=== PATIENT | female | born 1985 | race Caucasian/White ===

== ENCOUNTER 2016-08-08 11:30 | Day surgery (SDC) | payer BC, OTHER ==
[~2016-08-08] VITALS: Ht 162.6 cm; Wt 56.0 kg
[~2016-08-08 11:30] MED LIST: FLUDROCORT PO; LUBI8CAP4 PO; TOPI50TA16 PO
[2016-08-08 12:03] VITALS: BP 108/64; PULSE 84; TEMP 36.9; O2SAT 96; Ht 162.6 cm; Wt 56.0 kg
[2016-08-08] MEDS ORDERED: BACITRACIN OINT 0.9 GM PKT ONE (12:59)
[2016-08-08] MEDS ORDERED: LIDOCAINE HCL 1% 20 ML VIAL ONE (13:00)
[2016-08-08] MEDS ORDERED: LACTATED RINGER'S 1000ML IV SCH (14:00)
--- NOTE | 2016-08-08 14:07 | Cardiology Procedure Brief Nt ---
Preliminary Cardiology Note Procedure Date Aug 08, 2016. 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 Aguillon Fiscal Assistant(s) none Estimated Blood Loss 5 cc Preliminary Findings Successful explantation Recommendations Monitor her very briefly and discharge Specimens Old loop recorder, return to [employer] Anesthesia local with no sedation Complication(s) None Disposition [facility]
[2016-08-08 14:15] VITALS: BP 112/61; PULSE 82; TEMP 37; O2SAT 100
--- NOTE | 2016-08-08 14:18 | Discharge Instructions ---
Discharge Instructions Admission Reason for Admission: Loop recorder battery depletion Discharge Discharge Diagnosis / Problem: Loop recorder end of service Discharge Goals Goal(s): Therapeutic intervention Activity Recommendations Activity Limitations: resume your previous activity . Instructions / Follow-Up Instructions / Follow-Up ACTIVITY RECOMMENDATIONS: * Do not raise affected arm over head for 2 weeks. SPECIAL CARE INSTRUCTIONS: * If bleeding occurs, apply direct pressure to area for 5 minutes. * Call your doctor if you have severe pain, fever, drainage or bleeding at site. * Keep dressing on and dry for 48 hours then remove. * Keep any scheduled doctor's appointment. FOLLOW UP VISIT: Dr. Aguillon, , 08/10/2016 10:00 AM Current Hospital Diet Patient's current hospital diet: Discharge Diet Recommended Diet: Regular Diet Procedures Procedures Performed: Loop recorder explantation Pending Studies Studies pending at discharge: no Medical Emergencies . Who to Call and When: Medical Emergencies: If at any time you feel your situation is an emergency, please call 911 immediately. . Non-Emergent Contact Non-Emergency issues call your: Primary Care Provider . . "Provider Documentation" section prepared by Anup Aguillon. VTE Core Measure Inpt VTE Proph given/why not?: Treatment not indicated
--- NOTE | 2016-08-08 14:36 | OPERATIVE REPORT ---
DATE OF OPERATION: 08/08/2016 PREOPERATIVE DIAGNOSIS: Loop recorder end of service. POSTOPERATIVE DIAGNOSIS: Same. PROCEDURE: Loop recorder removal. SURGEON: Anup Aguillon M.D. ANESTHESIA: Local without sedation. HISTORY OF PRESENT ILLNESS: This is a 30-year-old woman who had a history of syncope. On tilt testing she had what appeared to be orthostasis as well as a possible vagal episode. With uncertainty as to the cause of her syncope she had a loop recorder implanted on 11/14/2012. She has had several presyncopal episodes but no true syncope since recorder implantation. Her presyncopal episodes have shown sinus tachycardia and not bradycardia suggesting that her syncope was due to orthostasis. Her device has now reached end of service, there seems to be little utility in implanting another device and implant procedure with the new device is very different in a different location; therefore there is no advantage in implanting it at the same time. We are therefore going to explant the device. She is currently and therefore we are going to avoid conscious sedation, but will use a local anesthetic. PROCEDURE: After obtaining informed consent for the procedure, she was brought to the laboratory on the afternoon of 08/08/2016 being n.p.o. after midnight. She was identified in the laboratory, connected to the recording apparatus. She was prepped and draped in standard sterile manner for left side loop recorder explantation. 1% lidocaine local anesthetic was infiltrated at the site of the loop implantation. A cm incision was made through the old implant scar and carried down to the loop recorder. The loop recorder was dissected free of tissue and explanted. The loop recorder was confirmed to be a [employer] model 9528 (Reveal DX), serial number [id number]). This was implanted 11/14/2012. This device will be returned to [employer]. Once the device was explanted the incision was closed with a subcutaneous closure of 4-0 Vicryl followed by running subcuticular skin closure of 4-0 Vicryl. Bacitracin ointment was placed on incision and a pressure dressing applied. The patient tolerated the procedure well, there were no complications and estimated blood loss was less than 5 mL. The patient was transferred to the ambulatory unit for brief observation and then discharged. RHIANNA
== END 2016-08-08 14:50 | disposition home or self-care (01) ==
LOC: C.ACU 11:30
PROVIDERS: ATTEND Internal Medicine Cardiovascular Disease
DX: Z45.09 Encounter for adjustment and management of other cardiac device (principal); I95.1 Orthostatic hypotension; R00.0 Tachycardia, unspecified